=== PATIENT | female | born 1975 | race African-American/Black ===

== ENCOUNTER → 2017-08-08 | Outpatient (CLI) | payer OTHER ==
[2017-08-08 15:32] LABS: HEMATOCRIT 36.6 % (36.0-47.0); HEMOGLOBIN 12.8 g/dL (12.0-15.5); MEAN CORPUSCULAR HEMOGLOBIN 26.3 pg (27.0-33.4); MEAN CORPUSCULAR VOLUME 75 fl (80-97); PLATELET COUNT 342 10^3/uL (150-450); RED BLOOD COUNT 4.87 10^6/uL (3.72-5.28); RED CELL DISTRIBUTION WIDTH 14.9 % (11.5-14.0)
[2017-08-08 15:59] LABS: ANION GAP 11 (5-19); BLOOD UREA NITROGEN 12 mg/dL (7-20); CALCIUM 9.8 mg/dL (8.4-10.2); CARBON DIOXIDE 26 mmol/L (22-30); CHLORIDE 103 mmol/L (98-107); GLUCOSE 102 mg/dL (75-110); POTASSIUM 4.4 mmol/L (3.6-5.0); SODIUM 140.4 mmol/L (137-145)
--- NOTE | 2017-08-08 22:10 | EKG REPORT ---
SEVERITY:- BORDERLINE ECG - SINUS RHYTHM PROBABLE LEFT ATRIAL ABNORMALITY : Confirmed by: Yuki Stafford MD 08-Aug-2017 22:08:26
== END ==
LOC: OD 14:02
PROVIDERS: ATTEND Orthopaedic Surgery
DX: E66.9 Obesity, unspecified (principal); Z68.39 Body mass index [BMI] 39.0-39.9, adult
CPT/HCPCS: 36415; 80048; 85027; 93005; 93010

== ENCOUNTER → 2019-07-23 | Outpatient (CLI) | payer OTHER ==
--- NOTE | 2019-07-23 12:07 | RADIOLOGY REPORT (SQ) ---
EXAM DESCRIPTION: U/S THYROID/SFT TISS HD NECK IMAGES COMPLETED DATE/TIME: 07/23/2019 10:31 am REASON FOR STUDY: (R59.0)LOCALIZED ENLARGED LYMPH NODES R59.0 LOCALIZED ENLARGED LYMPH NODES COMPARISON: None. TECHNIQUE: The procedure was discussed with the patient and written informed consent obtained. A ti meout was performed to confirm the procedure and patient's identity. Focused sonographic evaluation of the neck was performed for biopsy evaluation. Postsurgical changes noted within the left thyroid bed with evidence of prior hemithyroidectomy. There is a normal appearing lymph node within the left neck measuring 8 x 13 x 4 mm. There is normal architecture and a fatty hilum. Limited sonographic evaluation of the right thyroid without focal nodule. Case was discussed with the patient and no biopsy performed. LIMITATIONS: None. FINDINGS: Focused sonographic evaluation of the neck demonstrated postsurgical changes on the left w ith evidence of prior hemithyroidectomy. There is a normal appearing lymph node within the left neck measuring 8 x 13 x 4 mm. There is normal architecture and a fatty hilum. Limited sonographic evalua tion of the right thyroid without focal nodule. IMPRESSION: 1. No biopsy was performed. 2. Focused sonographic evaluation of the left neck demonstrates postsurgical changes from prior thyr oidectomy with normal appearing left sided cervical lymph node. No suspicious area identified to war rant biopsy. Follow-up ultrasound could be considered to ensure stability if clinically indicated. COMMENT: Patient medication list reviewed: Yes- Quality ID# [id number]:Eligible professional attests to doc umenting in the medical record they obtained, updated, or reviewed the patient's current medications. TECHNICAL DOCUMENTATION: JOB ID: [id number] 2010 [employer]- All Rights Reserved Reading location - IP/workstation name: [email or web address]
== END ==
LOC: RAD 09:15 → EDSTATUS 10:44
PROVIDERS: ATTEND Physician Assistant
DX: R59.0 Localized enlarged lymph nodes (principal)
CPT/HCPCS: 76536